=== PATIENT | female | born 1980 | race Caucasian/White ===

== ENCOUNTER 2017-03-15 08:57 | Emergency (ER) | payer MEDICAID ==
[~2017-03-15] VITALS: Wt 74.5 kg
[~2017-03-15 08:57] MED LIST: NO MEDICATION
--- NOTE | 2017-03-15 09:31 | ERD ---
ER Documentation Chief Complaint Date/Time DATE: 03/15/17 Chief Complaint Vaginal bleeding, 11 weeks HPI The patient is a 36-year-old female, A2, who presents to the Emergency Department with complaint of vaginal spotting. The patient reports that her last menstrual period was 12/28/2016, and she believes that she is approximately 11 weeks . The patient reports that after waking up this morning she went to use the restroom, and upon wiping noted a small amount of pink-colored vaginal spotting. She denies any associated pelvic or abdominal pain. The patient notes that given history of 2 prior miscarriages, she became concerned and therefore called her IT INTEGRATION ARCHITECT's (Dr. Carrascos) office, and was advised to present to the emergency department for evaluation. The patient denies any dysuria, polyuria or flank pain. Denies fevers, sweats, chills, nausea, vomiting or diarrhea. Denies any new vaginal discharge. Denies chest pain, palpitations, shortness of breath, headache, dizziness or lower extremity swelling. No other complaints at this time. ROS All systems reviewed and are negative except as per history of present illness. Medications Home Meds Reported Medications [No Medication] No Conflict Check 08/21/14 Allergies Allergies: Coded Allergies: No Known Allergy (Unverified , 08/21/14) PMhx/Soc History of Surgery: No Hx Neurological Disorder: No Hx Respiratory Disorders: No Hx Cardiac Disorders: No Hx Psychiatric Problems: No Hx Miscellaneous Medical Probl: No Hx Alcohol Use: No Hx Substance Use: No Hx Tobacco Use: No Physical Exam Vitals Vital Signs Date Time Temp Pulse Resp B/P Pulse Ox O2 Delivery O2 Flow Rate FiO2 03/15/17 12:21 98.2 74 19 128/63 100 Room Air 03/15/17 08:59 97.0 79 20 117/64 100 Physical Exam GENERAL: Well-developed, well-nourished, female, in no acute distress. Nontoxic. Well-appearing. HEENT: Head is normocephalic, atraumatic. No scleral pallor or icterus. Pupils equal, round and reactive to light. Extraocular movements intact. Conjunctiva pink. Moist mucous membranes. NECK: Supple. Full range of motion. RESPIRATORY: Lungs are clear to auscultation bilaterally. Equal breath sounds. Normal expiratory effort. CARDIOVASCULAR: Regular rate and rhythm. S1 and S2 normal. Distal pulses are palpable, 2+ bilaterally. Capillary refill is less than 2 seconds. GASTROINTESTINAL: Abdomen is soft, non-tender, and non-distended. Normal bowel sounds. No tenderness at McBurney's point. FLANK: No CVA tenderness. BACK: No midline tenderness. EXTREMITIES: No clubbing, cyanosis, or edema. Normal skin perfusion. Moving all extremities. Muscle tone is normal. No focal swelling or erythema. NEUROLOGIC: The patient is alert, awake, and oriented x 3. No focal neurologic deficits. INTEGUMENT: Skin is intact. Warm and dry. PSYCHIATRIC: Cooperative. Appropriate. Result Diagram: 03/15/17 0931 Results 24 hrs Laboratory Tests Test 03/15/17 09:31 White Blood Count 9.510^3/ul Red Blood Count 3.7010^6/ul Hemoglobin 10.1g/dl Hematocrit 30.6% Mean Corpuscular Volume 82.7fl Mean Corpuscular Hemoglobin 27.3pg Mean Corpuscular Hemoglobin Concent 33.0g/dl Red Cell Distribution Width 16.7% Platelet Count 25868^3/UL Mean Platelet Volume 11.0fl Neutrophils % 76.7% Lymphocytes % 15.9% Monocytes % 6.0% Eosinophils % 0.7% Basophils % 0.3% Nucleated Red Blood Cells % 0.0/100WBC Neutrophils # 7.310^3/ul Lymphocytes # 1.510^3/ul Monocytes # 0.610^3/ul Eosinophils # 0.110^3/ul Basophils # 0.010^3/ul Nucleated Red Blood Cells # 0.010^3/ul Urine Color YELLOW Urine Clarity SLIGHTLY CLOUDY Urine pH 6.0 Urine Specific [place] 1.020 Urine Ketones NEGATIVEmg/dL Urine Nitrite NEGATIVEmg/dL Urine Bilirubin NEGATIVEmg/dL Urine Urobilinogen NEGATIVEmg/dL Urine Leukocyte Esterase NEGATIVELeu/ul Urine Microscopic RBC 1/HPF Urine Microscopic WBC 0/HPF Urine Bacteria FEW/HPF Urine Hemoglobin NEGATIVEmg/dL Urine Glucose NEGATIVEmg/dL Urine Total Protein NEGATIVEmg/dl Beta HCG, Quantitative 123214.0mIU/ml Procedures/MDM DIAGNOSTIC TESTS AND INTERPRETATION: PROCEDURE: OBSTETRICAL ULTRASOUND WITH ENDOVAGINAL IMAGES CLINICAL INDICATION: Vaginal Bleed () TECHNIQUE: Multiple sonographic images of the pelvis were obtained utilizing a transabdominal and endovaginal technique. The images were reviewed on a PACS workstation. COMPARISON: None. LMP: 12/28/2016 FINDINGS: There is a single live intrauterine with heart rate of 168 beats per minute, mean sac diameter of 5.10 cm, yolk sac, and crown-rump length of 5.33 cm which is consistent with a gestational age of 11 weeks, 5 days . The estimated date of delivery by ultrasound is 09/29/2017 . The estimated gestational age by LMP is 11 weeks, 0 days . The estimated date of delivery by LMP is 10/04/2017 . Bilateral ovaries are not visualized. There are no abnormal adnexal masses. No significant pelvic free fluid is identified. IMPRESSION: Single live intrauterine consistent with a gestational age of 11 weeks , 5 days . The estimated date of delivery is 09/29/2017 . Dating by ultrasound is within 5 days of dating by LMP. No subchorionic hemorrhage is identified. Bilateral ovaries are not visualized. There are no abnormal adnexal masses. Physician Candida Date Time Electronically viewed and signed by Physician Candida on 03/15/2017 12:07 MEDICAL DECISION MAKING: The possibility of threatened was discussed with the patient and she was told to follow up with her IT INTEGRATION ARCHITECT within 2-3 days for re-evaluation. The patient complies and agrees with plan. This is a 36-year-old female presenting to the Emergency Department complaining of vaginal bleeding. She had no significant abnormalities noted on physical examination. Vital signs were normal. Differential diagnosis includes, but is not limited to, ectopic , cervicitis, fibroids, molar , implantation bleeding, heterotopic , septic , missed , incomplete , inevitable , threatened , complete , coagulopathy, fibroids, adenomyosis, endometriosis, neoplasia, vaginitis, PID, vaginal trauma, dysfunctional uterine bleeding. No significant abnormalities were noted on testing ordered. Beta hCG is 2866. Rh (+), no indication for RhoGAM.. Ultrasound performed revealed a single live intrauterine consistent with a gestational age of 11 weeks, 5 days. After rest, the patient reports no new complaints. Upon review and interpretation of the patient's presentation and overall ER course, I believe the patient's symptoms are most consistent with threatened and vaginal bleeding in a patient of less than 20 weeks gestation. At this time the patient patient is in stable condition with and therefore she be discharged home with strict return precautions for signs of deteriorating or worsening condition. The patient is advised to follow up with her IT INTEGRATION ARCHITECT within 2-3 days for repeat beta hCG testing, reevaluation and further management, or return to the ER sooner for any worsening symptoms. I shared all laboratory and diagnostic imaging studies with the patient at length and in great detail, and the patient verbally understands and agrees with the plan for further observation and care as an outpatient. At the time of discharge , all questions were answered. Departure Diagnosis: Primary Impression: Vaginal bleeding in patient at less than 20 weeks gestation Additional Impression: Threatened Condition: Stable Patient Instructions: Bleeding During Early , Possible Miscarriage ( Threatened ) Additional Instructions: Follow up with your IT INTEGRATION ARCHITECT in 2-3 days for reevaluation and further management. Return to the ED sooner for any new or worsening symptoms. MERRY DAVIS PA-C Mar 15, 2017 09:31
[2017-03-15 09:42] LABS: ADD SCAN DIFF NO
[2017-03-15 09:55] LABS: ADD UMIC NO; UR ASCORBIC ACID 40 mg/dL (NEGATIVE); UR BACTERIA FEW /HPF (NONE SEEN); UR BILIRUBIN (Dip) NEGATIVE (NEGATIVE); UR BLOOD (Dip) NEGATIVE (NEGATIVE); UR CLARITY SLIGHTLY CLOUDY (CLEAR); UR COLOR YELLOW (YELLOW); UR GLUCOSE (Dip) NEGATIVE (NEGATIVE); UR KETONES (Dip) NEGATIVE (NEGATIVE); UR LEUKOCYTE ESTERASE (Dip) NEGATIVE Leu/ul (NEGATIVE); UR NITRITE (Dip) NEGATIVE (NEGATIVE); UR RBC 1 /HPF (0-5); UR TOTAL PROTEIN (Dip) NEGATIVE (NEGATIVE); UR UROBILINOGEN (Dip) NEGATIVE (NEGATIVE)
[2017-03-15 10:08] LABS: BASOPHILS % 0.3 % (0.0-2.0); EOSINOPHILS # 0.1 10^3/ul (0.0-0.5); EOSINOPHILS % 0.7 % (0.0-7.0); HEMATOCRIT 30.6 % (37.0-47.0); HEMOGLOBIN 10.1 g/dl (12.0-16.0); LYMPHOCYTES # 1.5 10^3/ul (0.8-2.9); LYMPHOCYTES % 15.9 % (15.0-51.0); MEAN CORPUSCULAR HEMOGLOBIN 27.3 pg (29.0-33.0); MEAN CORPUSCULAR VOLUME 82.7 fl (82.0-101.0); MONOCYTE # 0.6 10^3/ul (0.3-0.9); NEUTROPHIL # 7.3 10^3/ul (1.6-7.5); NEUTROPHILS % 76.7 % (39.0-77.0); PLATELET COUNT 356 10^3/UL (140-415); RED CELL DISTRIBUTION WIDTH 16.7 % (11.5-14.5); WHITE BLOOD COUNT 9.5 10^3/ul (4.8-10.8)
--- NOTE | 2017-03-15 12:07 | RADRPT ---
PROCEDURE: OBSTETRICAL ULTRASOUND WITH ENDOVAGINAL IMAGES CLINICAL INDICATION: Vaginal Bleed () TECHNIQUE: Multiple sonographic images of the pelvis were obtained utilizing a transabdominal and endovaginal technique. The images were reviewed on a PACS workstation. COMPARISON: None. LMP: 12/28/2016 FINDINGS: There is a single live intrauterine with heart rate of 168 beats per minute, mean sa c diameter of 5.10 cm, yolk sac, and crown-rump length of 5.33 cm which is consistent with a gestati onal age of 11 weeks, 5 days . The estimated date of delivery by ultrasound is 09/29/2017 . The estimated gestational age by LMP is 11 weeks, 0 days . The estimated date of delivery by LMP is 10/04/2017 . Bilateral ovaries are not visualized. There are no abnormal adnexal masses. No significant pelvic free fluid is identified. IMPRESSION: Single live intrauterine consistent with a gestational age of 11 weeks, 5 days . The estimated date of delivery is 09/29/2017 . Dating by ultrasound is within 5 days of dating by LMP. No subchorionic hemorrhage is identified. Bilateral ovaries are not visualized. There are no abnormal adnexal masses. RPTAT: EE Physician Candida Date Time Electronically viewed and signed by Physician Candida on 03/15/2017 12:07 /
[2017-03-15 12:21] VITALS: BP 128/63; PULSE 74; RESP 19; TEMP 98.2
== END 2017-03-15 12:23 | disposition home or self-care (01) ==
LOC: FTE 08:57
DX: O20.9 Hemorrhage in early pregnancy, unspecified (principal); O20.0 Threatened abortion; Z3A.11 11 weeks gestation of pregnancy
CPT/HCPCS: 36415; 76801; 81001; 84702; 85025; 86900; 86901; Z7502; 81003

== ENCOUNTER 2017-09-27 09:46 | Inpatient (IN) | END 2017-09-30 13:11 | disposition home or self-care (01) | DRG 766 ==

== ENCOUNTER 2017-10-23 09:08 | Emergency (ER) | END 2017-10-23 14:04 | disposition home or self-care (01) ==